=== PATIENT | female | born 1965 | race Caucasian/White ===

== ENCOUNTER 2021-01-20 09:05 | Emergency (ER) | payer MEDICARE, MEDICAID ==
[~2021-01-20] VITALS: Ht 170.2 cm; Wt 110.0 kg
[2021-01-20] MEDS ORDERED: fentaNYL/PF 50MCG/1 ML 2ML syringe IV ONE (09:10)
[2021-01-20 09:54] LABS: ALANINE AMINOTRANSFERASE 22 U/L (12-78); ALBUMIN 4.1 G/DL (3.4-5.0); ALBUMIN/GLOBULIN RATIO 0.9 (1.1-1.5); ALKALINE PHOSPHATASE 139 IU/L (46-116); ANION GAP 12 (8-16); BILIRUBIN,TOTAL 0.8 MG/DL (0.1-1.0); BLOOD UREA NITROGEN 21 MG/DL (7-18); BUN/CREATININE RATIO 23.6 (6.6-38.0); CALCIUM 9.9 MG/DL (8.5-10.1); CHLORIDE 105 MMOL/L (99-107); CREATININE 0.89 MG/DL (0.40-0.90); GLUCOSE 175 MG/DL (70-104); SODIUM 141 MMOL/L (135-145); TOTAL CARBON DIOXIDE 24.5 MMOL/L (24-32); TOTAL PROTEIN 8.9 G/DL (6.4-8.2); eGFR 66 ML/MIN
[2021-01-20 09:55] LABS: ASPARTATE AMINO TRANSFERASE 26 U/L (10-37); POTASSIUM 4.3 MMOL/L (3.5-5.1)
[2021-01-20] MEDS ORDERED: ketorolac trometh. 30mg/ml inj. IV ONE (10:10)
[2021-01-20 10:37] LABS: HEMOGLOBIN 15.2 g/dl (12.0-16.0); MEAN CORPUSCULAR VOLUME 86.7 FL (78-98)
[2021-01-20 10:39] LABS: BASOPHILS % (AUTO) 0.4 % (0-1); EOSINOPHILS # (AUTO) 0.1 X10'3 (0-0.9); EOSINOPHILS % (AUTO) 0.5 % (0-6); HEMATOCRIT 44.5 % (35.0-45.0); LYMPHOCYTES # (AUTO) 1.9 X10'3 (1.1-4.8); MEAN CORPUSCULAR HEMOGLOBIN 29.7 PG (27.0-31.0); MEAN CORPUSCULAR HGB CONC 34.2 g/dL (33.0-36.5); MEAN PLATELET VOLUME 8.1 FL (7.4-10.4); MONOCYTES # (AUTO) 0.8 X10'3 (0-0.9); MONOCYTES % (AUTO) 6.6 % (2-12); NEUTROPHILS # (AUTO) 9.6 X10'3 (1.8-7.7); NEUTROPHILS % (AUTO) 77.5 % (42-75); PLATELET COUNT 341 X10'3 (140-440); RED BLOOD COUNT 5.13 X10'6 (4.20-5.60); RED CELL DISTRIBUTION WIDTH 14.8 % (11.5-14.5); WHITE BLOOD COUNT 12.5 X10'3 (4.5-11.0)
[2021-01-20] MEDS ORDERED: BUPR8TAB4 SL (10:55)
[2021-01-20] MEDS ORDERED: oxyCODONE/APAP 10/325mg tablet PO ONE (11:00)
--- NOTE | 2021-01-20 11:16 | NUR ---
ATTEMPT ELLA WRAP/CRUTCHES, PATIENT YELLING/SCREAMING IN PAIN. NOT ALLOWING ME TO APPLY ORTHO ORDERS. SPOKE WITH PHYLLIS GOMEZ REGARDING PT, OKAY'D TO GIVE PATIENT SUPPLIES AND HAVE HER PUT ON ELLA WRAP HERSELF.
[2021-01-20 11:35] VITALS: BP 126/89
== END 2021-01-20 11:45 | disposition home or self-care (01) ==
LOC: ER 09:06
DX: S80.01XA Contusion of right knee, initial encounter (principal); M25.461 Effusion, right knee; Z87.440 Personal history of urinary (tract) infections; Z87.442 Personal history of urinary calculi; Z88.8 Allergy status to other drugs, medicaments and biological substances; Z79.899 Other long term (current) drug therapy; W19.XXXA Unspecified fall, initial encounter; Y93.89 Activity, other specified; Y99.8 Other external cause status
CPT/HCPCS: 36415; 73590; 80053; 85025; 96374; 96375; 99284; J1885; J3010